=== PATIENT | female | born 1985 | race Caucasian/White ===

== ENCOUNTER 2019-01-11 00:05 | Outpatient (CLI) | payer OTHER ==
--- NOTE | 2019-01-11 03:40 | Ultrasound Report ---
Reason: VAGINAL BLEEDING FIRST TRIMESTER Procedure Date: 01/11/2019 Accession Number: [id number] / [id number] Procedure: US - OB First Trimester CPT Code: FULL RESULT: EXAM: FIRST TRIMESTER OBSTETRIC ULTRASOUND (Less than 11 weeks) EXAM DATE: 01/11/2019 02:30 AM. CLINICAL HISTORY: Vaginal bleeding first trimester. COMPARISONS: None. TECHNIQUE: Transabdominal ultrasound examination with static image documentation. FINDINGS: LMP: 10/24/2018. Estimated gestational age: 11 weeks 2 days. Estimated due date: 07/31/2019. Gestational Sac: Single intrauterine. Mean gestational sac diameter: 39.9 mm = 9 weeks 2 days. Embryo: CRL (crown-rump length) 40.6 mm = 11 weeks 0 days. Cardiac activity: 166 beats per minute. Yolk sac: 4.0 mm. Amniotic fluid: Not accurately assessed at this gestational age. Early placenta: Not visible at this gestational age. Other: There is an inferior perigestational collection measuring 5.6 x 5.7 x 2.4 cm with heterogeneous hypoechoic appearance. MATERNAL STRUCTURES: Uterus: Normal position and configuration. Right Ovary/Adnexa: Normal appearance of the right ovary measuring 2.9 x 4.1 x 1.6 cm. Left Ovary/Adnexa: Normal appearance of the ovary, measuring 3.3 x 3.3 x 2.1 cm. Free Fluid: None. Other: None. IMPRESSION: 1. Single live intrauterine gestation is noted, measuring 11 weeks 0 days on the current exam based on crown-rump length. Size equals dates. 2. There is a medium to large posteroinferior perigestational subchorionic bleed measuring 5.6 x 5.7 x 2.4 cm. MACKA The call report notification system was initiated by Dr. Jalyn Dela Cruz at 03:38 AM on 01/11/2019. The above call report findings were discussed with Jana Tavera (nurse Director Data Architecture) by Dr. Jalyn Dela Cruz at 03:51 AM on 01/11/2019.
== END 2019-01-11 00:06 | disposition home or self-care (01) ==
LOC: DI 00:05
PROVIDERS: ATTEND Midwife
DX: O20.0 Threatened abortion (principal); Z3A.11 11 weeks gestation of pregnancy
CPT/HCPCS: 76801

== ENCOUNTER 2019-07-25 22:05 | Inpatient (IN) | payer OTHER ==
[2019-07-25] MEDS ORDERED: LACTATED RINGERS 500 ML IV ONE (22:42)
[2019-07-25] MEDS ORDERED: LACTATED RINGERS 1,000 ML IV ONE (22:52)
[2019-07-25 23:05] LABS: BASOPHILS % (AUTO) 0.4 %; EOSINOPHILS # (AUTO) 0.2 10^3/uL (0.0-0.7); EOSINOPHILS % (AUTO) 1.3 %; HGB - HEMOGLOBIN 11.9 g/dL (12.0-16.0); LYMPHOCYTES # (AUTO) 2.2 10^3/uL (1.5-3.5); LYMPHOCYTES % (AUTO) 18.9 %; MEAN CORPUSCULAR HGB CONC 32.8 g/dL (32.0-36.0); MEAN CORPUSCULAR VOLUME 88.3 fL (81.0-99.0); NEUTROPHILS # (AUTO) 7.9 10^3/uL (1.5-6.6); NEUTROPHILS % (AUTO) 69.2 %; PLT - PLATELET COUNT 188 10^3/uL (130-450); RED BLOOD COUNT 4.11 10^6/uL (4.20-5.40); RED CELL DISTRIBUTION WIDTH 13.9 % (12.0-15.0); WHITE BLOOD COUNT 11.4 x10^3/uL (4.8-10.8)
--- NOTE | 2019-07-25 23:11 | HISTORY & PHYSICAL EXAMINATION ---
Admit History - Visit Reason Visit Reason: Other (Decreased movement and tachycarida) - : 5 Parity: 1 : 3 Care: positive: Other Risk/History: positive: Other (Hx of GHTN in prior , s/p thyroidectomy due to Graves' disease) Complications This : positive: None - Mother's Labs Mother's Blood Type: positive: A Mother's RH: positive: Negative GBS: positive: Group B Step Negative - Other Maternal History Other Maternal History: Patient is a 34-year-old G5, P1 who presents at 38 weeks 6 days estimated gestational age as a transfer of care from [facility]. Patient been followed by Jana Tavera CP, CPM LM of the [facility]. She called in to report decreased movement during the course of the day. Was not able to evoke movement with routine measures of stimulation. Underwent an NST at the [facility]. Baseline heart rate was in the 180s. No accelerations. [facility] recommended transfer to [facility] for evaluation in triage. Upon arrival tracing was again in the 180s with moderate variability no accelerations and no decelerations. Vibroacoustic stem was administered with no increase in accelerations. Subtle late appearing decel after VAS. Patient was given a 500 cc bolus with no change in heart rate. Patient is afebrile. No vaginal bleeding, no abdominal pain. On room markable daytime activities. Denies falls or blow to the abdomen. Past medical history significant for thyroidectomy due to history of Graves' disease. History of gestational hypertension prior . Prior delivery was 11 years ago; unremarkable home PNL: A negative/antibody neg/RPR nonreactive/hep B surface antigen nonreactive/Rubella immune/Hemoglobin A1c 4.8/Glucola 73/GBS negative NIPT 46 XY FAS wnl RhoGam given 05/14/2019 Review of Systems - Other Findings Other Findings: Denies fever, chills, VB, pain. Remaining systems negative. Physical - Abdominal Exam Contraction Intensity: positive: Other - Monitoring Heart Rate Baseline: 180 moderate variability no accels 1 late appearing decel Strip Review: positive: Category II - Presentation Presentation: positive: Vertex - Vaginal Exam Membranes: positive: Membranes intact Plan for Labor - Plan For Labor Plan for Labor: TACHYCARDIA: - Maternal WBC wnl, no maternal fever and abd tenderness -No vaginal bleeding -Giving IV fluid bolus -Checkng CBC/CMP/T&S/TFTs -Ordered BPP -Began discussion likelihood of recommending ubaldo via Sera was planning and [facility]. Wants to consider interventions carefully. Not ready to proceed with until attempts to resucitate heart rate have been attempted Agrees to IV fluid bolus and lab studies at present. ETA: Observation of BPP while US tech performed exam showed an with low tone and no movement. -Voiced my concern for well being and recommended proceeding with c- section. Emphasized this is my strong recommendation. -Patient not yet ready to consent to delivery via . Raises concerns regarding facility ability to support compromised infant. Discussed that she is not stable for transport via current tracing Will obtain BPP -In the interim, discussed case with [facility] perinatology. Transport mobilized to [facility] for possible transport. Admission and subsequent delivery pending maternal consent. NPO for now Continue with extended monitoring.
[2019-07-25 23:16] LABS: ALBUMIN 3.2 g/dL (3.2-5.5); ALBUMIN/GLOBULIN RATIO 0.9 (1.0-2.2); BILIRUBIN,TOTAL 0.4 mg/dL (0.2-1.0); CALCIUM 8.8 mg/dL (8.5-10.3); CREATININE 0.5 mg/dL (0.4-1.0); TOTAL PROTEIN 6.7 g/dL (6.7-8.2)
[2019-07-25 23:45] LABS: THYROID STIMULATING HORMONE 0.43 uIU/mL (0.34-5.60)
[2019-07-25 23:47] LABS: FREE T4 (FREE THYROXINE) 0.56 ng/dL (0.58-1.64)
[2019-07-26] MEDS ORDERED: SODIUM CHLORIDE FLUSH 0.9% 10 ML SYRINGE IVP PRN ×2 (00:29→04:34)
--- NOTE | 2019-07-26 00:40 | Ultrasound Report ---
Reason: non reactive NST Procedure Date: 07/25/2019 Accession Number: [id number] / [id number] Procedure: US - OB Biophysical Profile CPT Code: FULL RESULT: EXAM: BIOPHYSICAL PROFILE EXAM DATE: 07/25/2019 11:59 PM CLINICAL HISTORY: Nonreactive NST. COMPARISON: None. TECHNIQUE: Real-time sonographic evaluation of the fetus performed by the ordnance engineer. Multiple passenger representative static images were saved for review. DATING: Established EGA 38 weeks 6 days with LULÚ 08/02/2019. GENERAL EVALUATION Carrillo . Cardiac activity: 169 bpm. movement: Visualized. Presentation: Cephalic. Placenta: Fundal position. No evidence for previa or abruption. Amniotic fluid: Normal. COLIN 10.5 cm. MVP 4.7 cm. BIOPHYSICAL PROFILE Breathing = 2 Movement = 0 Tone = 0 Amniotic Fluid = 2 Total 02/04 IMPRESSION: 1. Carrillo live intrauterine with gestational age 38 weeks 6 days based on established LULÚ. 2. Biophysical profile score 4 of 8. RADIA The above call report findings were discussed with Elle Hooker by Dr. Perez Mcclellan at 12:39 AM on 07/26/2019.
--- NOTE | 2019-07-26 00:51 | ANESTHESIA ---
Pre-Anesthesia VS, & Labs - Diagnosis distress - Procedure Emergency C section Vital Signs: Temp Pulse Resp BP Pulse Ox 36.6 C 18 137/91 H 07/25/19 22:30 07/25/19 22:30 07/25/19 22:30 - NPO Other - Is Patient ?: Yes - Lab Results Current Lab Results: Laboratory Tests 07/25/19 22:58: Free T3 pg/mL 3.14 07/25/19 22:58: TSH 0.43, Free T4 0.56 L 07/25/19 22:58: WBC 11.4 H, RBC 4.11 L, Hgb 11.9 L, Hct 36.3 L, MCV 88.3, MCH 29.0, MCHC 32.8, RDW 13.9, Plt Count 188, MPV 11.0 H, Neut # (Auto) 7.9 H, Lymph # (Auto) 2.2, Posey # (Auto) 1.0, Eos # (Auto) 0.2, Baso # (Auto) 0.0, Absolute Nucleated RBC 0.00, Nucleated RBC % 0.0 07/25/19 22:58: Sodium 137, Potassium 4.0, Chloride 107, Carbon Dioxide 22, Anion Gap 8.0, BUN 9, Creatinine 0.5, Estimated GFR (MDRD) 140, Glucose 100, Calcium 8.8, Total Bilirubin 0.4, AST 14, ALT 12, Alkaline Phosphatase 90, Total Protein 6.7, Albumin 3.2, Globulin 3.5, Albumin/Globulin Ratio 0.9 L Lab results reviewed: Yes Fish Bones: 07/25/19 22:58 07/25/19 22:58 Home Medications and Allergies Active Medications Lactated Ringer's (Lr) 1,000 mls @ 150 mls/hr IV .Q6H40M CARON Simethicone (Mylicon) 80 mg PO 0900,1300,1800,2100 CARON Sodium Chloride (Normal Saline Flush 0.9%) 10 ml IVP PRN PRN PRN Reason: NEEDED PER PROVIDER ORDERS Sodium Chloride (Normal Saline Flush 0.9%) 10 ml IVP 0100,0900,1700 CARON Anes History & Medical History - Anesthetic History Anesthesia Complications: reports: No previous complications Family history of Anesthesia Complications: Denies Family history of Malignant Hyperthermia: Denies - Medical History Cardiovascular: reports: None Pulmonary: reports: None Gastrointestinal: reports: None Urinary: reports: None Neuro: reports: None Musculoskeletal: reports: None Endocrine/Autoimmune: reports: HyPOthyroidism Blood Disorders: reports: None Skin: reports: None Smoking Status: Never smoker Psychosocial: reports: No issues indicated - Obstetrical History : 5 Parity: 1 Events: positive: Other (Hx of GHTN in prior , s/p thyroidectomy) Complications: positive: None Exam General: Alert, Oriented x3, Cooperative Dental: WNL Mouth Opening: Greater than 4 Fingerbreadths Neck Mobility: Normal Mallampati classification: II Thyromental Distance: greater than 6 cm Respiratory: Lungs clear Cardiovascular: Regular rate Neurological: Normal speech Mental/Cognitive Status: Alert/Oriented X3 Cognitive Status: Within normal limits Plan Anesthesia Type: General, Spinal Consent for Procedure(s) Verified and Reviewed: Yes Code Status: Attempt Resuscitation ASA classification: 2-Mild systemic disease Is this case an emergency?: Yes
[2019-07-26] MEDS ORDERED: SODIUM CHLORIDE FLUSH 0.9% 10 ML SYRINGE IVP SCH (01:00)
[2019-07-26] MEDS ORDERED: LACTATED RINGERS 1,000 ML IV SCH (01:00)
[2019-07-26] MEDS ORDERED: CITRIC ACID/SODIUM CITRATE 15 ML UDC PO ONE (01:09)
--- NOTE | 2019-07-26 01:10 | PROVIDER PROGRESS NOTE ---
Subjective - Prog Note Date Prog Note Date: 07/26/19 Prog Note Time: 01:09 Objective - Vital Signs/Intake & Output Reviewed Vital Signs: Yes Vital Signs: Vital Signs x48h Temp Resp BP 07/25/19 22:30 97.9 F 18 137/91 H Intake & Output: Intake & Output 07/23/19 07/24/19 07/25/19 07/26/19 23:59 23:59 23:59 23:59 Intake Total 1000 Balance 1000 - Lab Results Fish Bones: 07/25/19 22:58 07/25/19 22:58 Other Labs: Lab Results x24hrs 07/25/19 07/25/19 07/25/19 Range/Units 22:58 22:58 22:58 WBC 11.4 H (4.8-10.8) x10^3/uL RBC 4.11 L (4.20-5.40) 10^6/uL Hgb 11.9 L (12.0-16.0) g/dL Hct 36.3 L (37.0-47.0) % MCV 88.3 (81.0-99.0) fL MCH 29.0 (27.0-31.0) pg MCHC 32.8 (32.0-36.0) g/dL RDW 13.9 (12.0-15.0) % Plt Count 188 (130-450) 10^3/uL MPV 11.0 H (7.9-10.8) fL Neut # (Auto) 7.9 H (1.5-6.6) 10^3/uL Lymph # (Auto) 2.2 (1.5-3.5) 10^3/uL Isabella # (Auto) 1.0 (0.0-1.0) 10^3/uL Eos # (Auto) 0.2 (0.0-0.7) 10^3/uL Baso # (Auto) 0.0 (0.0-0.1) 10^3/uL Absolute Nucleated RBC 0.00 x10^3/uL Nucleated RBC % 0.0 /100WBC Sodium (135-145) mmol/L Potassium (3.5-5.0) mmol/L Chloride (101-111) mmol/L Carbon Dioxide (21-32) mmol/L Anion Gap (6-13) BUN (6-20) mg/dL Creatinine (0.4-1.0) mg/dL Estimated GFR (MDRD) (>89) Glucose (70-100) mg/dL Calcium (8.5-10.3) mg/dL Total Bilirubin (0.2-1.0) mg/dL AST (10-42) IU/L ALT (10-60) IU/L Alkaline Phosphatase (42-121) IU/L Total Protein (6.7-8.2) g/dL Albumin (3.2-5.5) g/dL Globulin (2.1-4.2) g/dL Albumin/Globulin Ratio (1.0-2.2) TSH 0.43 (0.34-5.60) uIU/mL Free T4 0.56 L (0.58-1.64) ng/dL Free T3 pg/mL 3.14 (2.5-3.9) pg/mL 07/25/19 Range/Units 22:58 WBC (4.8-10.8) x10^3/uL RBC (4.20-5.40) 10^6/uL Hgb (12.0-16.0) g/dL Hct (37.0-47.0) % MCV (81.0-99.0) fL MCH (27.0-31.0) pg MCHC (32.0-36.0) g/dL RDW (12.0-15.0) % Plt Count (130-450) 10^3/uL MPV (7.9-10.8) fL Neut # (Auto) (1.5-6.6) 10^3/uL Lymph # (Auto) (1.5-3.5) 10^3/uL Isabella # (Auto) (0.0-1.0) 10^3/uL Eos # (Auto) (0.0-0.7) 10^3/uL Baso # (Auto) (0.0-0.1) 10^3/uL Absolute Nucleated RBC x10^3/uL Nucleated RBC % /100WBC Sodium 137 (135-145) mmol/L Potassium 4.0 (3.5-5.0) mmol/L Chloride 107 (101-111) mmol/L Carbon Dioxide 22 (21-32) mmol/L Anion Gap 8.0 (6-13) BUN 9 (6-20) mg/dL Creatinine 0.5 (0.4-1.0) mg/dL Estimated GFR (MDRD) 140 (>89) Glucose 100 (70-100) mg/dL Calcium 8.8 (8.5-10.3) mg/dL Total Bilirubin 0.4 (0.2-1.0) mg/dL AST 14 (10-42) IU/L ALT 12 (10-60) IU/L Alkaline Phosphatase 90 (42-121) IU/L Total Protein 6.7 (6.7-8.2) g/dL Albumin 3.2 (3.2-5.5) g/dL Globulin 3.5 (2.1-4.2) g/dL Albumin/Globulin Ratio 0.9 L (1.0-2.2) TSH (0.34-5.60) uIU/mL Free T4 (0.58-1.64) ng/dL Free T3 pg/mL (2.5-3.9) pg/mL - Other Results/Comments Other Results/Comments: [facility] 02/04 Patient agrees to Consent obtained [facility] transport team to stand by Permission for infant transport obtained via writen consent prior to surgery Pediatrics in house Proceed to OR
[2019-07-26] MEDS ORDERED: CEFAZOLIN SODIUM IN 0.9 % NACL 2 GM/100 ML BAG IV ONE (01:14)
[2019-07-26] MEDS ORDERED: LIDOCAINE MPF 1%-EPI 1:200000 30 ML VIAL ONE (01:30)
[2019-07-26] MEDS ORDERED: LACTATED RINGERS 1,000 ML IV ONE ×2 (02:31→02:54)
[2019-07-26] MEDS ORDERED: ONDANSETRON 4 MG/2 ML VIAL IVP PRN (04:34)
--- NOTE | 2019-07-26 04:38 | OPERATIVE REPORT ---
Operative Report - General Admit Date: 07/26/19 Planned Procedure: Primary low transverse Pre-Op Diagnosis: IUP at 39+0 weeks estimated gestational age; distress with BPP 4/8 Procedure Performed: Primary low transverse Post Op Diagnosis: Same and delivery of term gestation - Procedure Note Primary Surgeon: Tamara Hooker MD Secondary Surgeon: Landon Lara MD Anesthesia Provider: Tyson Montague CRNA Anesthesia Technique: Spinal Pathology: Placenta to pathology; cord gases and cord blood Estimated Blood Loss (mL): 650 Indications: IUP at 39 weeks 0 days followed at an outside facility presented with decreased movement and nonreactive NST. baseline of 180 with no accelerations and one late appearing decelerations, unresponsive VAS. was recommended. Patient desired more clinical information to inform decision making and further efforts at intrauterine resuscitation. BPP was performed and was 4 out of 8 due to lack of tone and lack of movement. Recommendation was made to proceed with primary due to distress. After a period of discussion and deliberation, patient agreed to . Written informed consent was obtained. Findings: Male infant in vertex presentation with Apgars of 6 and 8. Weight pending. Normal uterus tubes and ovaries. Complications: None - Other Other Information/Narrative: Risks benefits and alternatives of the procedure were discussed. Written informed consent was obtained. Patient was taken to the operating room where spinal anesthesia was placed and found to be adequate. Patient was prepped and draped in the usual sterile fashion in the dorsal supine position with a leftward tilt. Canela catheter was in place. SCDs were in place and activated. Cefazolin 2 g IV was given as a preoperative antibiotic. Preoperative timeout was performed. A total of 20 cc of 1% lidocaine with epinephrine was injected in to the suture line prior to making the incision. A Pfannenstiel incision was made in the skin with a scalpel and carried through the underlying layer of fascia in a combination of sharp and blunt dissection. The fascia was incised in the midline, and the incision was extended laterally with the Ulrich scissors. The superior aspect of the fascial incision was grasped with the Marianne clamps, elevated, and the underlying rectus muscles were dissected off bluntly and sharply using the Ulrich scissors. Attention was then turned to the inferior aspect of the incision which, in a similar fashion, was grasped, tented up with Marianne clamps, and the underlying rectus muscles dissected off bluntly and sharply using Ulrich scissors. The rectus muscles were then in the midline. The peritoneum was identified, tented up, and entered bluntly. The peritoneal incision was extended superiorly and inferiorly with good visualization of the bladder. The bladder that blade was then inserted. A bladder flap was not created. The lower uterine segment of the uterus was identified, and incised in a transverse fashion with a scalpel. The uterus was entered bluntly. The uterine incision was extended in a craniocaudal fashion by manual stretch. The bladder blade was removed. The infant was delivered from from vertex position. Baby was wrapped in a warm sterile towel. Cord was clamped x2 and cut. Cord gases and cord blood was collected. The was handed off to the waiting pediatricians. The placenta was removed with manual expression. The uterus was exteriorized and cleared of all clots and debris via manual swipe using Ray-Fabiola x2. The uterine incision was then repaired in a running locked fashion using 0 Vicryl suture. The incision was reinforced with a running imbricating layer again using 0-Vicryl suture. 2 [id number] sutures using 2-0 chromic were placed to reinforce the hysterotomy.Excellent hemostasis was obtained. The uterus was returned to the abdomen. The gutters were cleared of all clots and debris. The pelvis was irrigated with warm normal saline. The uterine defect was well visualized in normal anatomic position it was noted again to be hemostatic. The peritoneum was then reapproximated with 2-0 Vicryl in a running fashion. The rectus muscles were then reapproximated using interrupted [id number] sutures using 2-0 Chromic. Good hemostasis was noted. The fascia was then closed using 0 Vicryl in a running fashion starting from the left lateral edge to the midline. A second suture was used to close the fascia in a running fashion starting from the right lateral edge and meeting in the midline, again using 0-Vicryl. The subcutaneous tissue was then irrigated and closed using 2-0 chromic in a running subcutaneous suture. Skin was closed in a running subcuticular suture using 4-0 Monocryl. Steri-Strips were applied to reinforce the incsion and dressing was applied. Procedure was well-tolerated and without complication. Sponge lap and needle counts were correct x2. Patient was taken to recovery room in stable condition. Dr. Lara assisted with retraction, suturing, delivery of the infant.
[2019-07-26 05:34] LABS: BASOPHILS % (AUTO) 0.2 %; EOSINOPHILS % (AUTO) 0.2 %; HGB - HEMOGLOBIN 10.3 g/dL (12.0-16.0); LYMPHOCYTES # (AUTO) 1.5 10^3/uL (1.5-3.5); LYMPHOCYTES % (AUTO) 8.8 %; MEAN CORPUSCULAR HEMOGLOBIN 29.2 pg (27.0-31.0); MEAN CORPUSCULAR HGB CONC 33.4 g/dL (32.0-36.0); MEAN CORPUSCULAR VOLUME 87.3 fL (81.0-99.0); MEAN PLATELET VOLUME 10.6 fL (7.9-10.8); MONOCYTES # (AUTO) 1.2 10^3/uL (0.0-1.0); PLT - PLATELET COUNT 164 10^3/uL (130-450); RED BLOOD COUNT 3.53 10^6/uL (4.20-5.40); RED CELL DISTRIBUTION WIDTH 13.9 % (12.0-15.0); WHITE BLOOD COUNT 16.8 x10^3/uL (4.8-10.8)
[2019-07-26] MEDS ORDERED: HYDROmorphone 0.5 MG/0.5 ML SYRINGE IVP PRN (08:14)
[2019-07-26] MEDS: LACTATED RINGERS 1,000 ML IV SCH ×2 (08:17→16:03)
[2019-07-26] MEDS: ONDANSETRON ODT 4 MG TABLET TL PRN ×3 (08:53→18:39)
[2019-07-26] MEDS: HYDROcod/ACETAM 5/325 MG TABLET PO PRN ×2 (08:53→13:02)
[2019-07-26] MEDS ORDERED: SIMETHICONE CHEW 80 MG TABLET PO SCH (09:00)
[2019-07-26] MEDS: SODIUM CHLORIDE FLUSH 0.9% 10 ML SYRINGE IVP SCH ×2 (09:20→12:10)
[2019-07-26] MEDS: DOCUSATE SODIUM 100 MG CAPSULE PO SCH ×2 (10:32→22:03)
[2019-07-26] MEDS: IBUPROFEN 600 MG TABLET PO SCH ×3 (10:32→22:03)
--- NOTE | 2019-07-26 17:48 | PROVIDER PROGRESS NOTE ---
Subjective - General Admit Date: 07/26/19 Procedure Date: 07/26/19 Post Op Days: 0 Procedure Performed: primary low transverse c-seciton - Review of Systems Wound/Incisions: positive: Dressing dry and intact - Other Other Information/Narrative: Doing well with regard to pain management and po intake. No N/V. Has not yet been ambulating. Canela catheter in place. sent to [facility] and was intubated. Objective - Patient Data Vital Signs: Vital Signs x48h Temp Pulse Resp BP Pulse Ox 07/26/19 16:40 99.3 F 90 18 125/77 96 07/26/19 16:00 18 07/26/19 15:02 20 07/26/19 14:08 18 07/26/19 13:00 22 07/26/19 12:15 99.1 F 91 19 118/71 95 07/26/19 12:00 16 07/26/19 10:35 16 Weight: Weight 07/24/19 07/25/19 07/26/19 23:59 23:59 23:59 Weight (kg) 88.451 kg Intake & Output: Intake and Output Totals x24h 07/24/19 07/25/19 07/26/19 23:59 23:59 23:59 Intake Total 2088.333 Output Total 2400 Balance -311.667 - Lab Results Lab Results: 07/26/19 05:20 07/25/19 22:58 Other Lab Results: Lab Results x24hrs 07/26/19 07/26/19 07/25/19 Range/Units 08:29 05:20 22:58 WBC 16.8 H (4.8-10.8) x10^3/uL RBC 3.53 L (4.20-5.40) 10^6/uL Hgb 10.3 L (12.0-16.0) g/dL Hct 30.8 L (37.0-47.0) % MCV 87.3 (81.0-99.0) fL MCH 29.2 (27.0-31.0) pg MCHC 33.4 (32.0-36.0) g/dL RDW 13.9 (12.0-15.0) % Plt Count 164 (130-450) 10^3/uL MPV 10.6 (7.9-10.8) fL Neut # (Auto) 14.0 H (1.5-6.6) 10^3/uL Lymph # (Auto) 1.5 (1.5-3.5) 10^3/uL Harnett # (Auto) 1.2 H (0.0-1.0) 10^3/uL Eos # (Auto) 0.0 (0.0-0.7) 10^3/uL Baso # (Auto) 0.0 (0.0-0.1) 10^3/uL Absolute Nucleated RBC 0.00 x10^3/uL Nucleated RBC % 0.0 /100WBC Sodium (135-145) mmol/L Potassium (3.5-5.0) mmol/L Chloride (101-111) mmol/L Carbon Dioxide (21-32) mmol/L Anion Gap (6-13) BUN (6-20) mg/dL Creatinine (0.4-1.0) mg/dL Estimated GFR (MDRD) (>89) Glucose (70-100) mg/dL Calcium (8.5-10.3) mg/dL Total Bilirubin (0.2-1.0) mg/dL AST (10-42) IU/L ALT (10-60) IU/L Alkaline Phosphatase (42-121) IU/L Total Protein (6.7-8.2) g/dL Albumin (3.2-5.5) g/dL Globulin (2.1-4.2) g/dL Albumin/Globulin Ratio (1.0-2.2) TSH (0.34-5.60) uIU/mL Free T4 (0.58-1.64) ng/dL Free T3 pg/mL 3.14 (2.5-3.9) pg/mL Blood Type A POSITIVE Weak D (Du) WEAK-D POSITIVE 07/25/19 07/25/19 07/25/19 Range/Units 22:58 22:58 22:58 WBC 11.4 H (4.8-10.8) x10^3/uL RBC 4.11 L (4.20-5.40) 10^6/uL Hgb 11.9 L (12.0-16.0) g/dL Hct 36.3 L (37.0-47.0) % MCV 88.3 (81.0-99.0) fL MCH 29.0 (27.0-31.0) pg MCHC 32.8 (32.0-36.0) g/dL RDW 13.9 (12.0-15.0) % Plt Count 188 (130-450) 10^3/uL MPV 11.0 H (7.9-10.8) fL Neut # (Auto) 7.9 H (1.5-6.6) 10^3/uL Lymph # (Auto) 2.2 (1.5-3.5) 10^3/uL Harnett # (Auto) 1.0 (0.0-1.0) 10^3/uL Eos # (Auto) 0.2 (0.0-0.7) 10^3/uL Baso # (Auto) 0.0 (0.0-0.1) 10^3/uL Absolute Nucleated RBC 0.00 x10^3/uL Nucleated RBC % 0.0 /100WBC Sodium 137 (135-145) mmol/L Potassium 4.0 (3.5-5.0) mmol/L Chloride 107 (101-111) mmol/L Carbon Dioxide 22 (21-32) mmol/L Anion Gap 8.0 (6-13) BUN 9 (6-20) mg/dL Creatinine 0.5 (0.4-1.0) mg/dL Estimated GFR (MDRD) 140 (>89) Glucose 100 (70-100) mg/dL Calcium 8.8 (8.5-10.3) mg/dL Total Bilirubin 0.4 (0.2-1.0) mg/dL AST 14 (10-42) IU/L ALT 12 (10-60) IU/L Alkaline Phosphatase 90 (42-121) IU/L Total Protein 6.7 (6.7-8.2) g/dL Albumin 3.2 (3.2-5.5) g/dL Globulin 3.5 (2.1-4.2) g/dL Albumin/Globulin Ratio 0.9 L (1.0-2.2) TSH 0.43 (0.34-5.60) uIU/mL Free T4 0.56 L (0.58-1.64) ng/dL Free T3 pg/mL (2.5-3.9) pg/mL Blood Type Weak D (Du) - Current Medications Current Medications: Current Medications Generic Name Dose Route Start Last Admin Trade Name Freq PRN Reason Stop Dose Admin Docusate Sodium 100 mg 07/26/19 09:00 07/26/19 10:32 Colace 100mg Capsule PO 100 mg BID [facility] Administration Lactated Ringer's 1,000 mls @ 100 mls/hr 07/26/19 05:00 07/26/19 16:03 Lr IV Not Given .Q10H CARON Ibuprofen 600 mg 07/26/19 10:00 07/26/19 16:04 Motrin PO 600 mg Q6HR CARON Administration Ondansetron HCl 4 mg 07/26/19 04:34 07/26/19 13:04 Zofran Odt TL 4 mg Q4H PRN Administration Nausea / Vomiting Sodium Chloride 10 ml 07/26/19 09:00 07/26/19 09:20 Normal Saline Flush 0.9% IVP Not Given 0100,0900,1700 [facility] - Physical Exam Wound/Incisions: positive: Dressing dry and intact General Appearance: positive: No acute distress, Other Respiratory: positive: No respiratory distress Abdomen: positive: Other (Appropriately tender with FF below umbi) Skin: positive: Color nml Extremities: positive: No pedal edema Neurologic/Psychiatric: positive: Oriented x3 Impression/Plan - Problem List Problem List: POD#1 s/p LTCS Routine post-op. Reviewed goals for discharge. - Encourage ambulation -ADAT -Transition to po pain meds -Remove Canela when ambulatory Provided with DC meds in anticipate of likely early discharge to be with son at [facility] ibuprofen 600 mgpo Q6H prn pain Acetaminophen 800 mg po Q8H prn pain Oxycodone 5 mg po Q4H prn pain Docusate 100 -200 mg po BID to prevent constipation Zofran 4-8 mg op Q8H prn NV
[2019-07-26] MEDS ORDERED: RHO(D) IMMUNE GLOBULIN 300 MCG SYRINGE IM ONE (17:53)
[2019-07-26] MEDS: ACETAMINOPHEN 500 MG TABLET PO PRN (18:37)
[2019-07-26] MEDS: oxyCODONE 5 MG TABLET PO PRN (18:37)
[2019-07-26] MEDS: SIMETHICONE CHEW 80 MG TABLET PO PRN (22:03)
[2019-07-27] MEDS: ACETAMINOPHEN 500 MG TABLET PO PRN ×2 (02:56→10:55)
[2019-07-27] MEDS: IBUPROFEN 600 MG TABLET PO SCH (06:28)
[2019-07-27] MEDS: oxyCODONE 5 MG TABLET PO PRN (08:56)
[2019-07-27] MEDS: SIMETHICONE CHEW 80 MG TABLET PO PRN (08:57)
[2019-07-27] MEDS: DOCUSATE SODIUM 100 MG CAPSULE PO SCH (08:57)
--- NOTE | 2019-07-27 09:33 | PROVIDER PROGRESS NOTE ---
Subjective - General Admit Date: 07/26/19 Procedure Date: 07/26/19 Post Op Days: 1 Procedure Performed: primary low transverse c-seciton - Review of Systems Wound/Incisions: positive: Healing well, Dressing dry and intact, No drainage. negative: Erythema - Other Other Information/Narrative: The patient is doing actually quite well this morning. She is ambulating well and tolerating diet well. She is passing flatus.Her lochia is actually quite light.She is voiding without difficulty. Objective - Patient Data Vital Signs: Vital Signs x48h Temp Pulse Resp BP Pulse Ox 07/27/19 07:49 36.8 C 83 20 133/81 H 99 07/27/19 06:00 37.1 C 83 16 106/62 97 Weight: Weight 07/25/19 07/26/19 07/27/19 23:59 23:59 23:59 Weight (kg) 88.451 kg Intake & Output: Intake and Output Totals x24h 07/25/19 07/26/19 07/27/19 23:59 23:59 23:59 Intake Total 2338.333 400 Output Total 3600 325 Balance -1261.667 75 - Lab Results Lab Results: 07/26/19 05:20 07/25/19 22:58 Other Lab Results: Lab Results x24hrs 07/26/19 Range/Units 08:29 Blood Type A POSITIVE Weak D (Du) WEAK-D POSITIVE - Current Medications Current Medications: Current Medications Generic Name Dose Route Start Last Admin Trade Name Freq PRN Reason Stop Dose Admin Acetaminophen 1,000 mg 07/26/19 04:34 07/27/19 02:56 Tylenol PO 1,000 mg Q8H PRN Administration pain Docusate Sodium 100 mg 07/26/19 09:00 07/27/19 08:57 Colace 100mg Capsule PO 100 mg BID CARON Administration Lactated Ringer's 1,000 mls @ 100 mls/hr 07/26/19 05:00 07/26/19 16:03 Lr IV Not Given .Q10H CARON Ibuprofen 600 mg 07/26/19 10:00 07/27/19 06:28 Motrin PO 600 mg Q6HR CARON Administration Ondansetron HCl 4 mg 07/26/19 04:34 07/26/19 18:39 Zofran Odt TL 4 mg Q4H PRN Administration Nausea / Vomiting Oxycodone HCl 5 mg 07/26/19 17:42 07/27/19 08:56 Roxicodone PO 5 mg Q4HR PRN Administration PAIN Simethicone 80 mg 07/26/19 04:35 07/27/19 08:57 Mylicon PO 80 mg 0900,1300,1800,2100 PRN Administration Gas Sodium Chloride 10 ml 07/26/19 09:00 07/26/19 12:10 Normal Saline Flush 0.9% IVP 10 ml 0100,0900,1700 CARON Administration - Physical Exam Wound/Incisions: positive: Healing well, Dressing dry and intact, No drainage. negative: Erythema Comments/Other: Heart: The heart has a regular rate and rhythm without, S3-S4 gallop rhythms Lungs: Lungs clear to auscultation bilaterally without wheezes, rales or rhonchi Abdomen: The abdomen is soft, pliable and nontender. The uterus is firm and nontender approximately 2 fingerbreadths below the umbilicus. Incision: The incision is clean and dry without any signs of infection. Is well approximated. Steri-Strips are in place and are intact. Laboratory Results - last 24 hr 07/26/19 08:29 Blood Type A POSITIVE Weak D (Du) WEAK-D POSITIVE Laboratory Tests 07/25/19 07/25/19 07/25/19 22:58 22:58 22:58 WBC 11.4 H RBC 4.11 L Hgb 11.9 L Hct 36.3 L MCV 88.3 MCH 29.0 MCHC 32.8 RDW 13.9 Plt Count 188 MPV 11.0 H Neut # (Auto) 7.9 H Lymph # (Auto) 2.2 Bullitt # (Auto) 1.0 Eos # (Auto) 0.2 Baso # (Auto) 0.0 Absolute Nucleated RBC 0.00 Nucleated RBC % 0.0 Sodium 137 Potassium 4.0 Chloride 107 Carbon Dioxide 22 Anion Gap 8.0 BUN 9 Creatinine 0.5 Estimated GFR (MDRD) 140 Glucose 100 Calcium 8.8 Total Bilirubin 0.4 AST 14 ALT 12 Alkaline Phosphatase 90 Total Protein 6.7 Albumin 3.2 Globulin 3.5 Albumin/Globulin Ratio 0.9 L TSH 0.43 Free T4 0.56 L Free T3 pg/mL Blood Type Weak D (Du) 07/25/19 07/26/19 07/26/19 22:58 05:20 08:29 WBC 16.8 H RBC 3.53 L Hgb 10.3 L Hct 30.8 L MCV 87.3 MCH 29.2 MCHC 33.4 RDW 13.9 Plt Count 164 MPV 10.6 Neut # (Auto) 14.0 H Lymph # (Auto) 1.5 Bullitt # (Auto) 1.2 H Eos # (Auto) 0.0 Baso # (Auto) 0.0 Absolute Nucleated RBC 0.00 Nucleated RBC % 0.0 Sodium Potassium Chloride Carbon Dioxide Anion Gap BUN Creatinine Estimated GFR (MDRD) Glucose Calcium Total Bilirubin AST ALT Alkaline Phosphatase Total Protein Albumin Globulin Albumin/Globulin Ratio TSH Free T4 Free T3 pg/mL 3.14 Blood Type A POSITIVE Weak D (Du) WEAK-D POSITIVE Impression/Plan - Problem List Problem List: Impression: Postop day/ day #1: Stable Plan: The patient wishes to be discharged so she can go to the [facility] in [place] to be with her baby.Since she is stable it does seem at this will be able to be accomplished. She states she does have a room at the hospital that would accommodate both her and her so they can be near the baby.She was therefore discharged home with both written and verbal instructions which included such things as: 1. She is to forego any lifting, tampons, douching or intercourse 2. She is to report any temperatures greater than 100.4, signs of infection around her incision or heavy vaginal bleeding 3. She does not drive a car for the next 2 weeks. 4. She is to leave the Steri-Strips in place for the next week and after that she may take them off. Prior to them coming off she may take a shower after they come off she may take a tub bath 5. All medications were already given to her by Dr. Hooker and one is referred to Dr. Hooker's progress note from last evening for full details 6. She is not to drive a car for the next 2 weeks. 7. She is to continue her vitamins and increase her fluids. 8. As long she does well we will see her in the office in 1 week and recheck. She will call sooner if she has problems.
[2019-07-27] MEDS ORDERED: KETOROLAC 30 MG/ML VIAL IVP ONE (09:37)
[2019-07-27] MEDS ORDERED: NEOSTIGMINE 1 MG/1 ML 10 ML MDV IVP ONE (09:37)
[2019-07-27] MEDS ORDERED: ePHEDrine 50 MG/ML VIAL IVP ONE (09:37)
[2019-07-27] MEDS ORDERED: MORPHINE PF 10 MG/10 ML AMP EPI ONE (09:37)
[2019-07-27] MEDS: ONDANSETRON ODT 4 MG TABLET TL PRN (11:03)
[2019-07-27 11:15] VITALS: BP 124/80
--- NOTE | 2019-08-05 01:15 | DISCHARGE SUMMARY ---
"Discharge Summary Admit Date: 07/25/19 Discharge Date: 07/27/19 Discharging Provider: Jose Han MD Condition at Discharge: Good Discharge Disposition: 01 Home, Self Care - DIAGNOSES Admission Diagnoses: IUP at Decreased movement tachycardia - HPI History of Present Illness: Patient is a 34-year-old G5, P1 who presented at 38 weeks 6 days estimated gestational age as a transfer of care from [facility]. Patient been followed by Jana Tavera CPM LM of the [facility]. Patient had called outside OB provider to report decreased movement during the course of the day. Was not able to evoke movement with routine measures of stimulation. Presented to [facility] and underwent an NST. Baseline heart rate was in the 180s. No accelerations. [facility] recommended transfer to [facility] for evaluation in triage. Upon arrival tracing was again in the 180s with moderate variability no accelerations and no decelerations. Vibroacoustic stem was administered with no increase in accelerations. Subtle late appearing decel after VAS. Patient was afebrile. No vaginal bleeding, no abdominal pain. Unremarkable daytime activities. Denied falls or blow to the abdomen. Past medical history significant for thyroidectomy due to history of Graves' disease. History of gestational hypertension prior . Prior delivery was 11 years ago; unremarkable home PNL: A negative/antibody neg/RPR nonreactive/hep B surface antigen nonreactive/Rubella immune/Hemoglobin A1c 4.8/Glucola 73/GBS negative NIPT 46 XY FAS wnl RhoGam given 05/14/2019 - CONSULTS | PROCEDURES Procedures: Primary low transverse - HOSPITAL COURSE Hospital Course: Patient presented at [facility] for further assessment for non-reactive NST in the setting of tachycardia and decreased movement. On arrival, baseline was in the 180s with minimal to moderate variability, no accels or decels. Vibroacoustic stimulation was applied and failed to evoke appropriate accelerations. In contrast, a late appearing deceleration was evoked by VAS. We discussed proceeding with but patient was reticient given failure to fully assess causes of tachycardia and explore alternative means of resuscitation. After some discussion, an IV was placed. Patient was given a 500 cc bolus with no change in heart rate. A biophysical profile was ordered. The exam was observed by the on-call c unix developer. It was apparent to the OB provider that there was no movement or tone. was strongly recommended at this time. Patient opted to wait for completion of the exam and for the formal read form Radiology. BPP returned at 4/8 with 0 score for tone and movement. was recommended. Discussed that patient was not stable for transport given prolonged duration of transport off [place] facilities and unstable status. Patient agreed after further discussion with partner and family. [facility] was contacted prior to the . OB mission planner discussed case with [facility] Neonatology attending. Transport mobilized from [place] to [facility] for possible transport with potential transfer of care approved by receiving provider. Written consent for possible / transport was obtained from patient prior to moving to operating room for . was well tolerated and without complication. Male was delivered form vertex presentation. Weight 3148 g, Apgars were 6/8. Arterial blood gases: 7.335/33.3/46.3/17.4/18.4/-7.4 Venous blood gases: 7.356/39.4/24.9/21.6/22.8/-3.6 Infant was kept in house after delivery. Transferred to [facility] later in the day on POD#0. By POD#1, Sera was up and ambulating, tolerating po, pain was adequately delaney ged with oral medications, and she was voiding. She requested early discharge in order to be with her son in [place]. She was discharged to home. Discharge Medications: Ibuprofen 600 mg po Q6H prn pain Acetaminophen 800 mg po Q8H prn pain Oxycodone 5 mg po Q4H prn pain Docusate 100 -200 mg po BID to prevent constipation Zofran 4-8 mg op Q8H prn NV - ALLERGIES Allergies/Adverse Reactions: Allergies Allergy/AdvReac Type Severity Reaction Status Date / Time codeine AdvReac Emesis Verified 07/26/19 04:55 - LABS Result Diagrams: 07/26/19 05:20 07/25/19 22:58 - FOLLOW UP Follow Up: Follow up in 1 week for incision check and 6 weeks for routine care. - TIME SPENT Time Spent in Discharge (Minutes): 30"
== END 2019-07-27 11:18 | disposition home or self-care (01) | DRG 788 ==
LOC: WFO 22:05 → FBP 22:07 → WFO 07-26 00:29
PROVIDERS: ADMIT Obstetrics & Gynecology; ATTEND Obstetrics & Gynecology
PROC: 10D00Z1 Extraction of Products of Conception, Low, Open Approach (ICD-10-PCS; principal; 2019-07-26 01:30)
DX: O76 Abnormality in fetal heart rate and rhythm complicating labor and delivery (principal); O36.8130 Decreased fetal movements, third trimester, not applicable or unspecified; Z37.0 Single live birth; O99.284 Endocrine, nutritional and metabolic diseases complicating childbirth; E89.0 Postprocedural hypothyroidism; Z87.898 Personal history of other specified conditions; O26.893 Other specified pregnancy related conditions, third trimester; Z67.11 Type A blood, Rh negative; Z3A.39 39 weeks gestation of pregnancy
CPT/HCPCS: 36415; 59025; 76819; 80053; 81599; 83033; 84439; 84443; 84481; 85025; 86900; 86901; A9270; J0690; J2274; J7120; Q0162; 99215

== ENCOUNTER 2023-02-13 06:58 | Outpatient (CLI) | payer OTHER ==
--- NOTE | 2023-02-13 08:56 | Ultrasound Report ---
PROCEDURE: Pelvic w/Transvaginal INDICATIONS: ABN UTERINE BLEEDING TECHNIQUE: Real-time scanning was performed of the pelvic organs, with image documentation. Additional endovagi nal scanning was necessary due to incomplete visualization of the adnexal and endometrial structures by transabdominal scanning. COMPARISON: None. FINDINGS: Uterus: Uterus is retroverted and normal in size at 9.2 x 4.8 x 7.2 cm. The myometrium is homogeneo us. The endometrium measures 9.7 mm in combined thickness. Ovaries: The right ovary measures 5.3 x 2.8 x 4.0 cm, with a calculated ovarian volume of 31 cc. Th e left ovary measures 4.0 x 2.1 x 2.4 cm, with a calculated ovarian volume of 10.5 cc. The ovaries h ave a normal sonographic appearance. Greater than 12 follicles can be seen in each ovary, which can be seen in the clinical setting of PCOS. No adnexal masses are seen. No cystic lesions measuring gre ater than 3 cm. Other: No pathologic free abdominal or pelvic fluid. IMPRESSION: Greater than 12 follicles per ovary, which can be seen in the clinical setting of polycystic ovarian syndrome. Reviewed by: Alex Son on 02/13/2023 8:55 AM PDT Approved by: Alex Son on 02/13/2023 8:55 AM PDT Station ID: [id number]
== END 2023-02-13 06:59 | disposition home or self-care (01) ==
LOC: DI 06:58
PROVIDERS: ATTEND Registered Nurse Diabetes Educator
DX: E28.2 Polycystic ovarian syndrome (principal); N93.9 Abnormal uterine and vaginal bleeding, unspecified